=== PATIENT | male | born 1935 | race Caucasian/White ===

== ENCOUNTER 2017-04-11 09:11 | Emergency (ER) | payer MEDICARE ==
[2017-04-11 10:57] LABS: BILIRUBIN NEGATIVE (NEGATIVE); BLOOD 3+ Ery/uL (NEGATIVE); CLARITY CLOUDY (CLEAR); COLOR YELLOW (YELLOW); GLUCOSE (U) NORMAL (NORMAL); KETONE (U) NEGATIVE (NEGATIVE); LEUKOCYTES 2+ Leu/uL (NEGATIVE); NITRITE POSITIVE (NEGATIVE); PROTEIN 2+ mg/dL (NEGATIVE); SPECIFIC GRAVITY 1.025 (1.001-1.030); UROBILINOGEN 0.2 mg/dL (0.2-1.0); pH 5.5 (5.0-9.0)
[2017-04-11 11:42] LABS: BACTERIA 4+; URINARY WBC TNTC
[2017-04-11 12:54] LABS: BASOPHIL 0.2 % (0-2); HCT 31.3 % (42.0-52.0); HGB 10.8 g/dl (13.2-18.0); LYMPHOCYTE 15.8 % (15-48); MCH 30.8 pg (25.0-31.0); MCHC 34.5 g/dL (32.0-36.0); MCV 89.2 fL (78.0-100.0); MONOCYTE 9.5 % (0-12); MPV 8.8 fL (6.0-9.5); NEUTROPHIL 73.5 % (41-80); PLT 243 K/uL (150-400); RBC 3.51 M/uL (4.70-6.00); RDW 14.1 % (11.5-14.0)
[2017-04-11 13:03] LABS: INR 1.14 (0.9-1.2); PROTHROMBIN TIME 13.7 SECONDS (11.4-13.2); PTT 25.9 SECONDS (24.3-32.1)
[2017-04-11 13:06] LABS: LACTIC ACID 1.1 mmol/L (0.5-2.2)
[2017-04-11 13:10] LABS: BILIRUBIN - TOTAL 0.4 mg/dL (0.1-1.0); CREATININE 0.8 mg/dL (0.7-1.2); GLOBULIN (CALCULATION) 2.8 g/dL (2.2-4.2); POTASSIUM 3.2 mmol/L (3.5-5.1); TOTAL PROTEIN 5.8 g/dL (6.4-8.3)
== END 2017-04-11 14:41 | disposition home or self-care (01) ==
LOC: FER 09:11
PROVIDERS: Emergency Medicine
DX: N40.1 Benign prostatic hyperplasia with lower urinary tract symptoms (principal); R33.8 Other retention of urine; F03.90 Unspecified dementia, unspecified severity, without behavioral disturbance, psychotic disturbance, mood disturbance, and anxiety; Z79.899 Other long term (current) drug therapy
CPT/HCPCS: 36415; 80053; 81001; 83605; 85025; 85610; 85730; 87040; 87076; 87088; 87186; J1956